=== PATIENT | female | born 1960 | race Caucasian/White ===

== ENCOUNTER → 2017-04-21 | Outpatient (CLI) | payer BC ==
--- NOTE | 2017-04-22 12:46 | MAMMOGRAPHY REPORT ---
BILATERAL DIGITAL SCREENING MAMMOGRAM TOMOSYNTHESIS WITH CAD: 04/21/2017 CLINICAL HISTORY: Routine screening. Patient has no complaints. TECHNIQUE: Breast tomosynthesis in addition to standard 2D mammography was performed. Current study was also evaluated with a Computer Aided Detection (CAD) system. COMPARISON: Comparison is made to exams dated: 01/13/2010 mammogram - [facility] an d 03/06/2008. BREAST COMPOSITION: There are scattered areas of fibroglandular density in both breasts. FINDINGS: There is a 12 mm lobulated mass in the anterior subareolar right breast, for which additio nal targeted ultrasound and possible additional mammographic views are recommended. No other suspicious mass, architectural distortion or cluster of microcalcifications is seen bilatera lly. IMPRESSION: ACR BI-RADS CATEGORY 0: INCOMPLETE EVALUATION: NEED ADDITIONAL IMAGING EVALUATION The 12 mm lobulated mass in the subareolar right breast needs additional evaluation. The patient will be called to schedule an appointment. Approximately 10% of breast cancers are not detected with mammography. A negative mammographic report should not delay biopsy if a clinically suggestive mass is present. Nayla Mosqueda M.D. ay/:04/21/2017 15:31:16 Systems Integration Analyst: Herminia PIERRE(Carmencita)(Shobha)(JAYCE), [facility] letter sent: Addl Imaging 0 BI-RADS Code: ACR BI-RADS Category 0: Incomplete Evaluation: Need Additional Imaging Evaluation
== END | disposition home or self-care (01) ==
LOC: C.MAMM 15:04
PROVIDERS: ATTEND Physician Assistant
DX: Z12.31 Encounter for screening mammogram for malignant neoplasm of breast (principal); N63 Unspecified lump in breast

== ENCOUNTER → 2017-04-30 | Outpatient (CLI) | payer BC ==
--- NOTE | 2017-04-30 13:57 | MAMMOGRAPHY REPORT ---
ULTRASOUND OF RIGHT BREAST: 04/30/2017 CLINICAL HISTORY: Callback from screening mammogram for right breast mass. COMPARISON: Comparison is made to exams dated: 04/21/2017 mammogram, 01/13/2010 mammogram - [facility], and 03/06/2008. TECHNIQUE: Real-time targeted ultrasound of the right breast was performed. FINDINGS: Real-time, high resolution targeted ultrasound was performed of the right subareolar breas t in the region of the 12 mm mammographic mass described on the recent screening mammogram. In the r ight subareolar breast, there is an oval anechoic circumscribed mass which contains a few thin product marketing intern al septations, measuring 10 x 6 x 10 mm. This corresponds with the mammographic mass and is consiste nt with a benign cyst. IMPRESSION: ACR BI-RADS CATEGORY 2: BENIGN Benign 10 mm cyst in the right subareolar breast on ultrasound, which corresponds with the mammograph ic mass. There is no sonographic evidence of malignancy. A 1 year screening mammogram is recommende d. The patient was verbally notified of the results. Carissa Blanco M.D. /:04/30/2017 10:13:30 Slate Roofer: Carissa Blanco MD, [facility] letter sent: Normal 1/2 BI-RADS Code: ACR BI-RADS Category 2: Benign
== END | disposition home or self-care (01) ==
LOC: C.MAMM 09:46
PROVIDERS: ATTEND Physician Assistant
DX: N60.01 Solitary cyst of right breast (principal)

== ENCOUNTER → 2017-10-19 | Outpatient (CLI) | payer BC, OTHER ==
--- NOTE | 2017-10-19 13:05 | DIAGNOSTIC IMAGING REPORT ---
LEFT SHOULDER 3 VIEWS HISTORY: LEFT SHOULDER PAIN COMPARISON: None. FINDINGS: There is no fracture or dislocation. Soft tissues are unremarkable. No radiopaque foreign bodies. The left clavicle is intact. IMPRESSION: Unremarkable left shoulder by conventional radiographic technique. Electronically signed by: Miah Gonzalez M.D. 10/19/2017 1:04 PM Dictated Date/Time: 10/19/2017 12:59 PM
== END | disposition home or self-care (01) ==
LOC: C.RDSM 08:00
PROVIDERS: ATTEND Internal Medicine
DX: M25.512 Pain in left shoulder (principal)